=== PATIENT | male | born 1940 | race Two or more races ===

== ENCOUNTER 2018-03-05 06:47 | Emergency (ER) | payer SELFPAY ==
[2018-03-05 07:07] VITALS: BP 137/80; PULSE 63; TEMP 98.3; BMI 26.6
== END 2018-03-05 07:29 | disposition left against medical advice (07) ==
LOC: JER 06:47
DX: Z53.21 Procedure and treatment not carried out due to patient leaving prior to being seen by health care provider (principal)
CPT/HCPCS: 99281-25